=== PATIENT | female | born 1990 | race African-American/Black ===

== ENCOUNTER 2018-05-30 00:44 | Emergency (ER) | payer OTHER ==
[~2018-05-30] VITALS: Ht 170.2 cm; Wt 88.0 kg
[2018-05-30 04:20] VITALS: BP 133/76
== END 2018-05-30 04:25 | disposition home or self-care (01) ==
LOC: ER 00:44 → EDBD 00:44 → ER 04:25
DX: S16.1XXA Strain of muscle, fascia and tendon at neck level, initial encounter (principal); S29.012A Strain of muscle and tendon of back wall of thorax, initial encounter; V43.52XA Car driver injured in collision with other type car in traffic accident, initial encounter; Y93.89 Activity, other specified; Y92.488 Other paved roadways as the place of occurrence of the external cause; Y99.8 Other external cause status
CPT/HCPCS: 72125; 72128; 81025

== ENCOUNTER 2019-06-26 10:10 | Observation (INO) | payer MEDICAID, OTHER ==
[2019-06-26] MEDS ORDERED: PREN-96 PO (10:44)
== END 2019-06-26 11:02 | disposition home or self-care (01) | DRG 566 ==
LOC: LDRP 10:10
PROVIDERS: ADMIT Specialist; ATTEND Specialist
DX: O62.9 Abnormality of forces of labor, unspecified (principal); Z3A.38 38 weeks gestation of pregnancy
CPT/HCPCS: 59025; 81002; G0378

== ENCOUNTER → 2019-07-19 | Outpatient (CLI) | payer MEDICAID ==
[~2019-07-19] MED LIST: PREN-96 PO
== END | disposition home or self-care (01) ==
LOC: LAB 08:38
PROVIDERS: ATTEND Nurse Practitioner Family
DX: L02.211 Cutaneous abscess of abdominal wall (principal)
CPT/HCPCS: 87205